=== PATIENT | female | born 1980 | race Caucasian/White ===

== ENCOUNTER 2021-04-26 07:42 | Day surgery (SDC) | payer OTHER ==
[~2021-04-26] VITALS: Ht 165.1 cm; Wt 80.7 kg
[2021-04-26 08:31] LABS: BASOPHILS % (AUTO) 0.9 % (0.0-2.0); EOSINOPHILS # (AUTO) 0.1 K/uL (0-0.4); EOSINOPHILS % (AUTO) 1.1 % (0.0-4.0); HEMATOCRIT 40.8 % (36-48); HEMOGLOBIN 13.6 g/dL (12.0-16.0); LYMPHOCYTES # (AUTO) 1.6 K/uL (2.5-16.5); MEAN CORPUSCULAR HEMOGLOBIN 31 pg (27-31); MEAN CORPUSCULAR HGB CONC 33 g/dL (33-37); MEAN CORPUSCULAR VOLUME 91.7 fL (80-94); MONOCYTES # (AUTO) 0.4 K/uL (0.8-1.0); MONOCYTES % (AUTO) 7.2 % (1.7-9.3); NEUTROPHILS # (AUTO) 3.3 K/uL (1.8-7.7); NEUTROPHILS % (AUTO) 61.8 % (42.2-75.2); PLATELET COUNT (AUTO) 262 K/uL (140-450); RED BLOOD CELL COUNT(AUTO) 4.45 MIL/uL (4.20-5.40); RED CELL DISTRIBUTION WIDTH 14.2 % (11.6-13.7); WHITE BLOOD COUNT (AUTO) 5.4 K/uL (4.8-10.8)
[2021-04-26 08:41] LABS: ANION GAP 12.1 (8-16); CARBON DIOXIDE 25.7 mmol/L (21-32); CREATININE 0.7 mg/dL (0.6-1.3); POTASSIUM 3.8 mmol/L (3.5-5.1); TOTAL BILIRUBIN 0.3 mg/dL (0.0-1.0)
[2021-04-26] MEDS ORDERED: SEVOFLURANE 250 ML BTL INH ONE (09:45)
[2021-04-26] MEDS ORDERED: fentaNYL citrate 0.05 MG/ML VIAL ONE (09:46)
[2021-04-26] MEDS ORDERED: MIDAZOLAM 2 MG/2 ML VIAL ONE (09:46)
[2021-04-26] MEDS ORDERED: PROPOFOL 200 MG/20 ML VIAL IV ONE (09:46)
[2021-04-26] MEDS ORDERED: MEPERIDINE 50 MG/ML SYR ONE (09:58)
[2021-04-26] MEDS ORDERED: DEXAMETHASONE 4 MG/ML VIAL ONE (10:00)
[2021-04-26] MEDS ORDERED: ONDANSETRON 4 MG/2 ML VIAL ONE (10:00)
[2021-04-26] MEDS ORDERED: diphenhydrAMINE 50 MG/ML VIAL IVP PRN ×2 (10:10→10:20)
[2021-04-26] MEDS ORDERED: LACTATED RINGERS 1,000 ML IV SCH (10:10)
[2021-04-26] MEDS ORDERED: ONDANSETRON 4 MG/2 ML VIAL IVP PRN ×2 (10:10→10:20)
[2021-04-26] MEDS ORDERED: MEPERIDINE 25 MG/ML SYR IVP PRN (10:10)
[2021-04-26] MEDS ORDERED: oxyCODONE/APAP 5/325 MG 1 TAB TAB PO PRN (10:20)
[2021-04-26] MEDS ORDERED: HYDROmorphone PFS 2 MG/ML SYR ONE (11:15)
[2021-04-26] MEDS: HYDROmorphone 1 MG/ML AMP IVP PRN ×2 (11:54→11:55)
== END 2021-04-26 14:00 | disposition home or self-care (01) ==
LOC: MDS 07:42 → MMU 07:43 → MDS 14:00
PROVIDERS: ATTEND Obstetrics & Gynecology
DX: N92.0 Excessive and frequent menstruation with regular cycle (principal); I10 Essential (primary) hypertension; E11.9 Type 2 diabetes mellitus without complications; F32.9 Major depressive disorder, single episode, unspecified; E78.00 Pure hypercholesterolemia, unspecified; E66.9 Obesity, unspecified; Z68.30 Body mass index [BMI] 30.0-30.9, adult; Z79.899 Other long term (current) drug therapy; Z20.822 Contact with and (suspected) exposure to COVID-19
CPT/HCPCS: 36415; 58563; 80053; 81025; 85025; 86886; 86900; 86901; 87426; J1100; J1170; J2175; J2250; J2405; J2704; J3010; J7120; 88305

== ENCOUNTER 2022-06-13 10:59 | Inpatient (IN) | payer OTHER ==
[2022-06-11 11:47] LABS: BASOPHILS # (AUTO) 0.1 K/uL (0.00-0.22); BASOPHILS % (AUTO) 0.7 % (0.0-2.0); EOSINOPHILS % (AUTO) 0.3 % (0.0-4.0); HEMATOCRIT 36.9 % (36-48); HEMOGLOBIN 12.1 g/dL (12.0-16.0); LYMPHOCYTES # (AUTO) 1.5 K/uL (2.5-16.5); LYMPHOCYTES % (AUTO) 18.8 % (20.5-51.1); MEAN CORPUSCULAR HEMOGLOBIN 25 pg (27-31); MEAN CORPUSCULAR HGB CONC 33 g/dL (33-37); MEAN CORPUSCULAR VOLUME 76.1 fL (80-94); MONOCYTES # (AUTO) 0.4 K/uL (0.8-1.0); MONOCYTES % (AUTO) 5.3 % (1.7-9.3); NEUTROPHILS # (AUTO) 5.9 K/uL (1.8-7.7); NEUTROPHILS % (AUTO) 74.9 % (42.2-75.2); PLATELET COUNT (AUTO) 238 K/uL (140-450); RED BLOOD CELL COUNT(AUTO) 4.84 MIL/uL (4.20-5.40); RED CELL DISTRIBUTION WIDTH 17.7 % (11.6-13.7); WHITE BLOOD COUNT (AUTO) 7.9 K/uL (4.8-10.8)
[2022-06-11 12:08] LABS: ALBUMIN 3.8 g/dL (3.4-5.0); ANION GAP 12.5 (8-16); CARBON DIOXIDE 29.2 mmol/L (21-32); CREATININE 0.5 mg/dL (0.6-1.3); POTASSIUM 4.7 mmol/L (3.5-5.1); TOTAL BILIRUBIN 0.3 mg/dL (0.0-1.0)
[~2022-06-13] VITALS: Ht 167.6 cm; Wt 74.8 kg
[2022-06-13] MEDS ORDERED: BUPIVACAINE-MPF 0.5% 10 ML VIAL INJ ONE (16:15)
[2022-06-13] MEDS ORDERED: LIDOCAINE MPF 1% 10 ML ONE (16:15)
[2022-06-13] MEDS ORDERED: SUCCINYLCHOLINE CHLORIDE 200 MG/10 ML VIAL IVP ONE (16:41)
[2022-06-13] MEDS ORDERED: PROPOFOL 200 MG/20 ML VIAL IV ONE (16:41)
[2022-06-13] MEDS ORDERED: fentaNYL citrate 0.05 MG/ML VIAL ONE (16:41)
[2022-06-13] MEDS ORDERED: BUPIVACAINE-MPF/EPI 0.25% 10 ML VIAL INJ ONE (16:48)
[2022-06-13] MEDS ORDERED: ROCURONIUM 50 MG/5 ML VIAL IV ONE (17:03)
[2022-06-13] MEDS ORDERED: ONDANSETRON 4 MG/2 ML VIAL ONE (17:05)
[2022-06-13] MEDS ORDERED: DEXAMETHASONE 4 MG/ML VIAL ONE (17:05)
[2022-06-13] MEDS ORDERED: MEPERIDINE 50 MG/ML SYR ONE ×2 (17:32→18:29)
[2022-06-13] MEDS ORDERED: SUGAMMADEX SODIUM 200 MG/2 ML VIAL IV ONE (18:38)
[2022-06-13] MEDS ORDERED: ONDANSETRON 4 MG/2 ML VIAL IVP PRN (19:00)
[2022-06-13] MEDS ORDERED: MEPERIDINE 25 MG/ML SYR IVP PRN (19:00)
[2022-06-13] MEDS ORDERED: diphenhydrAMINE 50 MG/ML VIAL IVP PRN (19:00)
[2022-06-13 19:40] VITALS: BP 133/59
--- NOTE | 2022-06-13 19:40 | NUR ---
PT TRANSPORTED FROM [facility]. PT HAS LAPAROSCOPIC HYSTERECTOMY. PT HAS 3 INCISIONS WITH DERMABOND. PT IS AAOX4 ON RA. PT IS COMPLAINING OF PAIN 8/10 ON SURGICAL SITE. WILL GIVE PAIN MEDICATION. PT HAS TORRES CATHETER DRAINING CLEAR YELLOW URINE. PT HAS RIGHT AC 20 GAUGE RUNNING NS 120 CC/HR. PT HAS NO OTHER COMPLAINS. WILL CONTINUE TO MONITOR THE PT.
[2022-06-13] MEDS: NACL 0.9% 1,000 ML IV SCH (19:50)
[2022-06-13] MEDS: HYDROmorphone 1 MG/ML AMP IVP PRN (20:06)
--- NOTE | 2022-06-13 20:06 | NUR ---
VITAL SIGNS TAKEN AND STABLE. DILAUDID GIVEN FOR ABD PAIN 03/09.
--- NOTE | 2022-06-13 23:35 | NUR ---
PT OBSERVED. PT IS SLEEPING COMFORTABLY IN BED NOT IN ANY DISTRESS. VISIBLE RISE AND CHEST FALL. IVF RUNNING PER MD ORDER. CALL LIGHT WITHIN REACH. BED AT THE LOWEST POSITION. BREAKS ON. WILL CONTINUE TO MONITOR THE PT.
[2022-06-14] MEDS: NACL 0.9% 1,000 ML IV SCH ×2 (01:15→11:26)
--- NOTE | 2022-06-14 01:57 | NUR ---
PT OBSERVED. PT IS SLEEPING COMFORTABLY IN BED NOT IN ANY DISTRESS. VISIBLE RISE AND CHEST FALL. IVF RUNNING PER MD ORDER. CALL LIGHT WITHIN REACH. SAFETY PRECAUTIONS TAKEN. WILL CONTINUE TO MONITOR THE PT.
[2022-06-14] MEDS: HYDROmorphone 1 MG/ML AMP IVP PRN ×2 (03:52→09:38)
[2022-06-14 04:00] VITALS: BP 119/54
--- NOTE | 2022-06-14 04:00 | NUR ---
VITAL SIGNS TAKEN AND STABLE. PT COMPLAINED OF ABD PAIN. PAIN MEDICATION GIVEN ORDERED. WILL CONTINUE TO MONITOR THE PT.
--- NOTE | 2022-06-14 04:15 | NUR ---
MESSAGED DR. DHALIWAL FOR PRN PAIN MEDICATION FOR PT. ORDERED PERCOCET 5/325 2 TABLETS PO EVERY Q6H AND IBUPROFEN 800 MG PO Q8H SCHEDULED AND START NOW.
[2022-06-14] MEDS ORDERED: INSULIN LISPRO SLIDING SCALE 100 UNITS/ML VIAL SUBQ PRN (04:20)
[2022-06-14] MEDS: IBUPROFEN 800 MG TAB PO SCH ×2 (05:16→13:24)
[2022-06-14] MEDS: oxyCODONE/APAP 5/325 MG 1 TAB TAB PO SCH ×2 (06:40→12:06)
[2022-06-14] MEDS: BLOOD GLUCOSE MONITORING 1 DEV DEV FS SCH ×2 (06:57→12:06)
--- NOTE | 2022-06-14 07:24 | NUR ---
ENDORSED PATIENT TO DAY NURSE FOR CONTINUITY OF CARE. PATIENT IS STABLE.
--- NOTE | 2022-06-14 07:25 | NUR ---
RECEIVED REPORT FROM NURSE ADMINISTRATOR NURSE JOURDAN AND GIANNA STERLING FOR CONTINUITY OF CARE. PT SLEEPING, EASILY AROUSABLE BY VERBAL STIMULI. RESPIRATIONS EVEN AND UNLABORED ON RA. NO DISTRESS NOTED. WITH TORRES CATHETER IN PLACE, INTACT AND DRAINING WELL. IV SITE ON RAC 20G, INFUSING NS AT 120ML/HR. CALL LIGHT WITHIN REACH. SAFETY PRECAUTIONS IN PLACE.
[2022-06-14 08:00] VITALS: BP 119/50
--- NOTE | 2022-06-14 10:45 | NUR ---
INFORMED PT ABOUT THE DC ORDER. PER PT, HER WILL PICK HER UP WHO IS COMING FROM [place] IN [place]. PICK-UP TIME WILL BE 4PM.
[2022-06-14 11:09] VITALS: BP 119/50
--- NOTE | 2022-06-14 12:20 | NUR ---
ADMINISTERED DUE MED. V/S 116/59, 74. SLIDING SCALE INSULIN ADMINISTERED FOR BS 173. PT TOLERATED WELL.
--- NOTE | 2022-06-14 15:26 | NUR ---
DISCHARGE PAPERS DISCUSSED WITH THE PT. QUESTIONS ANSWERED. INFORMED PT THAT ALL HER PRESCRIBED MEDS ALREADY SENT TO HER PHARMACY PER DR DHALIWAL. PT VERBALIZED UNDERSTANDING. PT WILL BE PICKED UP BY HER . PT COMFORTABLY SITTING IN BED WITH NO ACUTE DISTRESS NOTED.
[2022-06-14 16:00] VITALS: BP 118/62
--- NOTE | 2022-06-14 16:20 | NUR ---
PT DC HOME. PT WHEELED TO FRONT LOBBY BY JAMAL JENKINS. REMOVED TORRES CATHETER TIP INTACT. REMOVED ID WRIST BAND. REMOVED IV CATHETER TIP INTACT. ALL BELONGINGS TAKEN UPON DC. PT IS STABLE.
[2022-06-14] MEDS ORDERED: SEVOFLURANE 250 ML BTL INH ONE (16:46)
== END 2022-06-14 16:46 | disposition home or self-care (01) | DRG 519 ==
LOC: MDS 10:59 → MMU 11:00 → MDS 17:00 → MTU 17:17 → MDS 06-14 10:35 → MTU 06-14 10:41 → UNDOADMIN 06-14 10:41 → UNDODISIN 06-14 16:46
PROVIDERS: ADMIT Obstetrics & Gynecology; ATTEND Obstetrics & Gynecology
PROC: 0UT24ZZ Resection of Bilateral Ovaries, Percutaneous Endoscopic Approach (ICD-10-PCS; 2022-06-13)
PROC: 0UT94ZZ Resection of Uterus, Percutaneous Endoscopic Approach (ICD-10-PCS; principal; 2022-06-13 13:20)
PROC: 0UT74ZZ Resection of Bilateral Fallopian Tubes, Percutaneous Endoscopic Approach (ICD-10-PCS; 2022-06-13 13:20)
DX: D25.9 Leiomyoma of uterus, unspecified (principal); N92.0 Excessive and frequent menstruation with regular cycle; N94.6 Dysmenorrhea, unspecified; Z20.822 Contact with and (suspected) exposure to COVID-19; N94.10 Unspecified dyspareunia; Z30.2 Encounter for sterilization
CPT/HCPCS: 36415; 80053; 82948; 85025; 86886; 86900; 86901; 87081; 88307; 93005; J0330; J0690; J1100; J1170; J2001; J2175; J2405; J2704; J3010; J3490; J7060